=== PATIENT | male | born 1985 | race African-American/Black ===

== ENCOUNTER 2020-05-09 18:05 | Emergency (ER) | payer SELFPAY ==
[~2020-05-09] VITALS: Ht 177.8 cm; Wt 104.5 kg
[2020-05-09 21:36] VITALS: BP 131/89
== END 2020-05-09 21:41 | disposition home or self-care (01) ==
LOC: EMS 18:05
DX: S13.4XXA Sprain of ligaments of cervical spine, initial encounter (principal); V89.2XXA Person injured in unspecified motor-vehicle accident, traffic, initial encounter; Y93.89 Activity, other specified; Y92.89 Other specified places as the place of occurrence of the external cause; Y99.8 Other external cause status
CPT/HCPCS: 72070; 72128; 99284; 71045-TC

== ENCOUNTER 2020-06-25 00:08 | Emergency (ER) | payer SELFPAY ==
[~2020-06-25] VITALS: Ht 177.8 cm; Wt 104.5 kg
[2020-06-25 02:15] VITALS: BP 132/75
[2020-06-25] MEDS ORDERED: LIDOCAINE 5% TRANSDERMAL PATCH TD ONE (02:15)
== END 2020-06-25 03:11 | disposition home or self-care (01) ==
LOC: EDBD 00:09 → EMS 00:09
DX: M54.6 Pain in thoracic spine (principal); V49.9XXA Car occupant (driver) (passenger) injured in unspecified traffic accident, initial encounter; Y93.89 Activity, other specified; Y92.413 State road as the place of occurrence of the external cause; Y99.8 Other external cause status
CPT/HCPCS: 99283